=== PATIENT | female | born 1970 | race Caucasian/White ===

== ENCOUNTER 2020-10-25 05:26 | Day surgery (SDC) | payer OTHER ==
[~2020-10-25] VITALS: Ht 155 cm; Wt 107.0 kg
[~2020-10-25 05:26] MED LIST: B12 INJECTION SC; DICLOFENAC SODI75 MG PO; ESCITALOPRAM OX20 MG PO; FEOSOL325 MG PO; PERCOCET 5-3251 EACH PO; SERTRALINE HCL50 MG PO; SUCRALFATE1 GM PO; TRAZODONE 100M100 MG PO; VENTOLIN HFA IN18 GM INH; VITAMIN B-121000 MC1 PO; VITAMIN D-32000 UNI1 PO; VOLTAREN **OUT75 MG PO
[2020-10-25] MEDS ORDERED: PREVACID PO (06:36)
[2020-10-25] MEDS ORDERED: PERCOCET 5-3251 EACH PO (06:51)
--- NOTE | 2020-10-25 14:10 | NUR ---
PT. REQUESTS OUTPT. AT [facility]. MO'S TO DELIVER A ROLLING WALKER AND 06/27.
[2020-10-26 05:53] LABS: BASOPHIL 0.1 % (0-2); EOSINOPHIL 0.1 % (0-5); HCT 34.4 % (37.0-47.0); HGB 11.1 g/dl (12.5-16.0); LYMPHOCYTE 10.2 % (15-48); MCH 29.8 pg (25.0-31.0); MCHC 32.3 g/dL (32.0-36.0); MCV 92.2 fL (78.0-100.0); MONOCYTE 11.5 % (0-12); MPV 9.3 fL (6.0-9.5); NEUTROPHIL 77.6 % (41-80); NRBC 0; PLT 251 K/uL (150-400); RBC 3.73 M/uL (4.20-5.40); RDW 15.1 % (11.5-14.0); WBC 11.3 K/uL (4.0-10.5)
[2020-10-26 06:05] LABS: BUN/CREAT RATIO (CALC) 16.4 RATIO; CREATININE 0.61 mg/dL (0.51-0.95)
[2020-10-26] MEDS ORDERED: 3IN1 COMMODE XX (08:17)
[2020-10-26] MEDS ORDERED: ULTRA-LIGHT RO1 EACH XX (08:17)
[2020-10-26] MEDS ORDERED: ASPIRIN81 MG PO (08:20)
--- NOTE | 2020-10-26 10:48 | NUR ---
PT TO D/C HOME THIS DATE. PT. REQUESTED [facility]. FIRST APPT. IS 10/27/20 @ 2:00 P.M. [phone]. PT. RECEIVED A RW AND 06/27 FROM [facility]. PT. SIGNED CHOICE FORM. PT. WAS VERY TEARFULL WHEN QUESTIONED SHE STATED THAT SHE WAS IN PAIN AFTER HAVING HER THERAPY. ADVISED HER NURSE STEPHANIE.
== END 2020-10-26 15:09 | disposition home health service (06) ==
LOC: FAS 05:26 → FMS 05:26 → FAS 07:00 → FMS 07:29 → FAS 10-26 15:09
PROVIDERS: Orthopaedic Surgery
DX: M17.12 Unilateral primary osteoarthritis, left knee (principal); I10 Essential (primary) hypertension; K21.9 Gastro-esophageal reflux disease without esophagitis; E66.01 Morbid (severe) obesity due to excess calories; Z88.2 Allergy status to sulfonamides; Z88.1 Allergy status to other antibiotic agents; Z88.6 Allergy status to analgesic agent; D64.9 Anemia, unspecified; R94.31 Abnormal electrocardiogram [ECG] [EKG]; J45.998 Other asthma
CPT/HCPCS: 36415; 73560; 80048; 85025; 86850; 86900; 86901; 94010; 94760; 94762; 97110; 97162; 97166; 97530-GP; 97535; C1713; C1776; J0171; J0697; J1100; J1170; J2250; J2270; J2405; J2704; J2710; J2795; J3010; J7120

== ENCOUNTER 2020-11-22 11:23 | Emergency (ER) | payer OTHER ==
[~2020-11-22 11:23] MED LIST changes: +3IN1 COMMODE XX; +ASPIRIN81 MG PO; +PREVACID PO; +ULTRA-LIGHT RO1 EACH XX
[2020-11-22 12:48] LABS: BASOPHIL 0.5 % (0-2); EOSINOPHIL 3.4 % (0-5); HCT 40.6 % (37.0-47.0); HGB 13.1 g/dl (12.5-16.0); LYMPHOCYTE 17.1 % (15-48); MCH 29.8 pg (25.0-31.0); MCHC 32.3 g/dL (32.0-36.0); MCV 92.3 fL (78.0-100.0); MONOCYTE 9.5 % (0-12); MPV 8.8 fL (6.0-9.5); NEUTROPHIL 69.2 % (41-80); NRBC 0; PLT 329 K/uL (150-400); RDW 15.1 % (11.5-14.0); WBC 6.4 K/uL (4.0-10.5)
[2020-11-22] MEDS ORDERED: NORCO 5-325 TA1 EACH PO (13:20)
[2020-11-22] MEDS ORDERED: DOXYCYCLINE MO100 MG PO (13:20)
[2020-11-22 13:21] LABS: BUN/CREAT RATIO (CALC) 14.8 RATIO; CREATININE 0.61 mg/dL (0.51-0.95); POTASSIUM 4.2 mmol/L (3.5-5.1)
== END 2020-11-22 13:41 | disposition home or self-care (01) ==
LOC: FER 11:23
PROVIDERS: Emergency Medicine
DX: M96.843 Postprocedural seroma of a musculoskeletal structure following other procedure (principal); K21.9 Gastro-esophageal reflux disease without esophagitis; Z89.612 Acquired absence of left leg above knee; Z88.2 Allergy status to sulfonamides; Z88.7 Allergy status to serum and vaccine; Z88.6 Allergy status to analgesic agent; Z88.1 Allergy status to other antibiotic agents; Z79.899 Other long term (current) drug therapy
CPT/HCPCS: 36415; 80048; 85025; 87070; 87077; 87186; 87205; 99283

== ENCOUNTER 2020-12-11 10:49 | Emergency (ER) | payer OTHER ==
[~2020-12-11 10:49] MED LIST changes: +DOXYCYCLINE MO100 MG PO; +NORCO 5-325 TA1 EACH PO
[2020-12-11] MEDS ORDERED: NORCO 5-325 TA1 EACH PO (12:29)
== END 2020-12-11 12:39 | disposition home or self-care (01) ==
LOC: FER 10:49
DX: M25.562 Pain in left knee (principal); Z96.659 Presence of unspecified artificial knee joint; Z88.6 Allergy status to analgesic agent; Z88.1 Allergy status to other antibiotic agents; Z88.2 Allergy status to sulfonamides; Z88.7 Allergy status to serum and vaccine; W19.XXXA Unspecified fall, initial encounter
CPT/HCPCS: 73560

== ENCOUNTER 2021-07-04 05:49 | Day surgery (SDC) | payer OTHER ==
[~2021-07-04] VITALS: Ht 155 cm; Wt 101.0 kg
[~2021-07-04 05:49] MED LIST changes: +NORCO 5/3251 EACH PO; +OXYCODONE-ACET1 EAC1 PO
[2021-07-04] MEDS ORDERED: LEXAPRO20 MG PO (06:45)
--- NOTE | 2021-07-04 14:04 | NUR ---
PT HAD A RESURFING OF THE PATELLA. PT HAS A RW AND 3/1.
[2021-07-05 06:46] LABS: BASOPHIL 0.1 % (0-2); EOSINOPHIL 0 % (0-5); HCT 37.7 % (37.0-47.0); HGB 10.8 g/dl (12.5-16.0); LYMPHOCYTE 11.8 % (15-48); MCH 27.5 pg (25.0-31.0); MCHC 28.6 g/dL (32.0-36.0); MONOCYTE 9.7 % (0-12); MPV 9.6 fL (6.0-9.5); NEUTROPHIL 78.1 % (41-80); NRBC 0; PLT 218 K/uL (150-400); RBC 3.93 M/uL (4.20-5.40); RDW 16.1 % (11.5-14.0); WBC 11.9 K/uL (4.0-10.5)
[2021-07-05 06:59] LABS: MCV 95.9 fL (78.0-100.0)
[2021-07-05 07:10] LABS: BUN/CREAT RATIO (CALC) 16.4 RATIO; CREATININE 0.55 mg/dL (0.51-0.95); POTASSIUM 4.4 mmol/L (3.5-5.1)
[2021-07-05] MEDS ORDERED: FEOSOL325 MG PO (09:34)
[2021-07-05] MEDS ORDERED: XARELTO10 MG PO (09:34)
[2021-07-05] MEDS ORDERED: DIFLUCAN150 MG PO (09:34)
[2021-07-05] MEDS ORDERED: ONDANSETRON HCL4 MG PO (09:34)
--- NOTE | 2021-07-05 10:32 | NUR ---
PT HAS REQUESTED [facility] IN [facility] OR [facility], BUT NEITHER HAD ANY APPTS FOR 2 WEEKS. PT. [facility] WHERE SHE HAS AN APPT ON 07/06/21 @ 11:15 AM. THE KORT PACKET WAS GIVEN TO THE PATIENT. PT. WILL D/C HOME THIS DATE.
== END 2021-07-05 17:04 | disposition home or self-care (01) ==
LOC: FAS 05:49 → FMS 11:45 → FAS 07-05 17:04
PROVIDERS: Orthopaedic Surgery
DX: T84.89XA Other specified complication of internal orthopedic prosthetic devices, implants and grafts, initial encounter (principal); M17.12 Unilateral primary osteoarthritis, left knee; Z96.652 Presence of left artificial knee joint; I10 Essential (primary) hypertension; K21.9 Gastro-esophageal reflux disease without esophagitis; F32.A Depression, unspecified; G47.33 Obstructive sleep apnea (adult) (pediatric); J45.909 Unspecified asthma, uncomplicated; Z88.1 Allergy status to other antibiotic agents; Z88.2 Allergy status to sulfonamides; Z88.6 Allergy status to analgesic agent; Z79.899 Other long term (current) drug therapy
CPT/HCPCS: 36415; 73560; 80048; 85025; 86850; 86900; 86901; 94010; 94760; 97110; 97162; 97165; 97530-GP; 97535; C1713; C1776; J0171; J0697; J0735; J1100; J1170; J2250; J2270; J2405; J2795; J3010; J7120